=== PATIENT | female | born 1985 | race African-American/Black ===

== ENCOUNTER 2016-09-23 17:29 | Emergency (ER) | payer SELFPAY ==
--- NOTE | 2016-09-23 19:03 | ER Document Report ---
ED Medical Screen (RME) - General Chief Complaint: Diarrhea Stated Complaint: DIARRHEA Time Seen by Provider: 09/23/16 18:57 Mode of Arrival: Ambulatory Information source: Patient Notes: This is a 31-year-old female that presents with diarrhea. The patient works on a cruciate and states she ate at a seafood buffet 2 weeks ago when she fell not quite right after eating at the seafood buffet. She states that she shortly after started having diarrhea and it was pretty bad at first. She states that over the last 2 weeks she still had diarrhea but is gotten better. She denies any fever or chills. She denies any abdominal pain. She did state that she had some blood on the toilet paper. She denies any blood mixed in with the stool. There is no family history of Crohn's disease or ulcerative colitis. TRAVEL OUTSIDE OF THE [place] IN LAST 30 DAYS: No - HPI Onset: Other - Last 2 weeks Quality of pain: No pain Severity: None Pain Level: Denies Associated Symptoms: Diarrhea. denies: Nausea, Vomiting Exacerbated by: Denies Relieved by: Denies Similar symptoms previously: No Recently seen / treated by doctor: No - Related Data Smoking: Non-smoker Frequency of alcohol use: None Drug Abuse: None Allergies/Adverse Reactions: No Known Allergies Allergy (Verified 09/23/16 18:39) Past Medical History - General Information source: Patient - Past Medical History Cardiac Medical History: Reports: None Pulmonary Medical History: Reports: None EENT Medical History: Reports: None Neurological Medical History: Reports: None Endocrine Medical History: Reports: None Renal/ Medical History: Reports: None Malignancy Medical History: Reports: None GI Medical History: Reports: None Musculoskeltal Medical History: Reports None Skin Medical History: Reports None Psychiatric Medical History: Reports: None Traumatic Medical History: Reports: None Infectious Medical History: Reports: None Past Surgical History: Reports: Hx Orthopedic Surgery - right rotator cuff - Immunizations Hx Diphtheria, Pertussis, Tetanus Vaccination: No Review of Systems - Review of Systems Constitutional: denies: Chills, Fever EENT: No symptoms reported Cardiovascular: No symptoms reported Respiratory: No symptoms reported Gastrointestinal: See HPI Genitourinary: No symptoms reported Female Genitourinary: No symptoms reported Musculoskeletal: No symptoms reported Skin: No symptoms reported Hematologic/Lymphatic: No symptoms reported Neurological/Psychological: No symptoms reported Physical Exam - Vital signs Vitals: Temp Pulse Resp BP Pulse Ox 99.1 F 63 16 105/63 97 09/23/16 17:36 09/23/16 17:36 09/23/16 17:36 09/23/16 17:36 09/23/16 17:36 Notes: Physical exam: GENERAL: 31-year-old female, alert and oriented 3, no acute distress HEAD: Atraumatic, normocephalic. EYES: Pupils equal round and reactive to light, extraocular movements intact, sclera anicteric, conjunctiva are normal. ENT: Moist mucous membranes. NECK: Normal range of motion LUNGS: Breath sounds clear to auscultation bilaterally and equal. No wheezes rales or rhonchi. HEART: Regular rate and rhythm without murmurs, rubs or gallops. ABDOMEN: Soft, normoactive bowel sounds. No tenderness to palpation. No guarding, no rebound. No masses appreciated. EXTREMITIES: Normal range of motion, no pitting or edema. No clubbing or cyanosis. NEUROLOGICAL: Cranial nerves II through XII grossly intact. Normal speech, normal gait. PSYCH: Normal mood, normal affect. SKIN: Warm, Dry, normal turgor, no rashes or lesions noted. Course - Vital Signs Vital signs: Temp Pulse Resp BP Pulse Ox 99.1 F 63 16 105/63 97 09/23/16 17:36 09/23/16 17:36 09/23/16 17:36 09/23/16 17:36 09/23/16 17:36 Doctor's Discharge - Discharge Clinical Impression: diarrhea Condition: Stable Disposition: HOME, SELF-CARE Instructions: Diarrhea, Nonspecific ([facility]) Additional Instructions: Recommendations: I do recommend you start taking probiotics to improve colon health as well as to the immune system. Try Activia Ukrainian Yogurt sold next to the milk at [employer] or supermarkets. Additionally, probiotics are sold in pill form and health food restaurants and these are good to. Drink plenty of fluids As we discussed, often times diarrhea from a food borne illness (i.e. food poisoning) will get better over time. In general, these are self limiting. However, if the diarrhea gets worse, the bleeding gets worse or if he started having pain, we would recommend coming back to the emergency room for blood work and repeat evaluation.
[2016-09-23 19:10] VITALS: BP 104/79
== END 2016-09-23 19:10 | disposition home or self-care (01) ==
LOC: ER 17:29
DX: R19.7 Diarrhea, unspecified (principal)
CPT/HCPCS: 99283

== ENCOUNTER 2017-10-16 10:38 | Emergency (ER) | payer OTHER ==
[2017-10-16] MEDS ORDERED: LIDOCAINE 5% (700 MG) TRANSDERMAL ADH..PATCH TP ONE (10:57)
[2017-10-16] MEDS ORDERED: IBUPROFEN 800 MG TABLET PO ONE (10:57)
[2017-10-16 11:22] VITALS: BP 104/67
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
== END 2017-10-16 12:26 | disposition home or self-care (01) ==
LOC: ER 10:38
DX: S46.811A Strain of other muscles, fascia and tendons at shoulder and upper arm level, right arm, initial encounter (principal); S39.012A Strain of muscle, fascia and tendon of lower back, initial encounter; M54.2 Cervicalgia; M54.6 Pain in thoracic spine; V87.7XXA Person injured in collision between other specified motor vehicles (traffic), initial encounter
CPT/HCPCS: 72110; 99284

== ENCOUNTER 2018-07-16 12:57 | Emergency (ER) | payer OTHER ==
[2018-07-16 13:08] VITALS: BP 118/76
[2018-07-16] MEDS ORDERED: POLYMYXIN B SULFATE/TMP OPH SOLN 10 ML OS ONE (14:01)
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
== END 2018-07-16 14:36 | disposition home or self-care (01) ==
LOC: ER 12:57
DX: S05.02XA Injury of conjunctiva and corneal abrasion without foreign body, left eye, initial encounter (principal); H57.12 Ocular pain, left eye; X58.XXXA Exposure to other specified factors, initial encounter
CPT/HCPCS: 99282; J3490

== ENCOUNTER 2019-12-07 08:54 | Inpatient (IN) | payer BC, MEDICAID ==
[2019-12-07] MEDS ORDERED: RINGERS SOLUTION,LACTATED 1,000 ML IV PRN (09:24)
[2019-12-07 09:47] LABS: ABSOLUTE EOSINOPHILS # (AUTO) 0.1 10^3/uL (0.0-0.6); ABSOLUTE LYMPHOCYTES (AUTO) 0.9 10^3/uL (0.5-4.7); ABSOLUTE MONOCYTES (AUTO) 0.4 10^3/uL (0.1-1.4); BASOPHILS % (AUTO) 0.5 % (0-2); EOSINOPHILS % (AUTO) 1.5 % (0-6); HEMATOCRIT 34.4 % (36.0-47.0); HEMOGLOBIN 11.8 g/dL (12.0-15.5); LYMPHOCYTES % (AUTO) 17.1 % (13-45); MEAN CORPUSCULAR HGB CONC 34.3 g/dL (32.0-36.0); MEAN CORPUSCULAR VOLUME 91 fl (80-97); MONOCYTES % (AUTO) 7.4 % (3-13); PLATELET COUNT 180 10^3/uL (150-450); RED CELL DISTRIBUTION WIDTH 14.2 % (11.5-14.0); SEGMENTED NEUTROPHILS % (AUTO) 73.5 % (42-78); TOTAL CELLS COUNTED % (AUTO) 100 %; WHITE BLOOD COUNT 5.4 10^3/uL (4.0-10.5)
[2019-12-07] MEDS ORDERED: OXYTOCIN/0.9 % SODIUM CHLORIDE 30 UNIT/500 ML RTUINJ IV PRN ×2 (09:53→17:59)
[2019-12-07] MEDS ORDERED: MISOPROSTOL 0.2 MG TABLET ONE (09:53)
[2019-12-07] MEDS ORDERED: LIDOCAINE 1% INJ-PF (10 MG/ML) 30 ML SDV ONE (09:53)
[2019-12-07] MEDS ORDERED: OXYTOCIN/0.9 % SODIUM CHLORIDE 30 UNIT/500 ML RTUINJ ONE (09:53)
[2019-12-07] MEDS ORDERED: OXYTOCIN 10 UNIT/ML VIAL ONE (09:53)
--- NOTE | 2019-12-07 10:06 | Admission Physical ---
Datetime Report Generated by CPN: 12/07/2019 10:05 CURRENT ADMISSION Hx Assessment: The History has been Reviewed and is Current Chief Complaint: Scheduled Induction of Labor Indication for Induction: Postterm Admit Impression : Postterm, Intrauterine Admit Plan: Admit to Unit; Initiate Labor Induction Protocol ALLERGIES Medication Allergies: No Medication Allergies: No Known Allergies (12/07/2019) Latex: No Latex Allergies OBSTETRICAL HISTORY EDC: 11/27/2019 00:00 : 2 Para: 0 Term: 0 : 0 SAB: 0 IAB: 1 Ectopic: 0 Livin Cesareans: 0 VBACs: 0 Multiple Births: 0 Gestational Diabetes: No Rh Sensitization: No Incompetent Cervix: No HILARY: No Infertility: No ART Treatment: No Uterine Anomaly: No IUGR: No Hx Previous C/S: No Macrosomia: No Hx Loss/Stillborn: No PIH: No Hx : No Placenta Previa/Abruption: No Depression/PP Depression: Yes PTL/PROM: No Post Hemorrhage: No Current Procedures: Ultrasound; NST MEDICAL HISTORY Diabetes: No Blood Transfusion: No Pulmonary Disease (Asthma, TB): No Breast Disease: No Hypertension: No Barman Surgery: No Heart Disease: No Hosp/Surgery: Yes Autoimmune Disorder: No Anesthetic Complications: No Kidney Disease: No Abnormal Pap Smear: No Neuro/Epilepsy: No Psychiatric Disorders: No Other Medical Diseases: No Hepatitis/Liver Disease: No Significant Family History: No Varicosities/Phlebitis: No Trauma/Violence : No Thyroid Dysfunction: No Medical History Comments: rotator cuff surgery-2011 INFECTIOUS HISTORY Gonorrhea: No Genital Herpes: No Chlamydia: No Tuberculosis: No Syphilis: No Hepatitis: No HIV/AIDS Exposure: No Rash or Viral Illness: No HPV: No PHYSICAL EXAM General: Normal Heart: Normal Lungs: Normal Abdomen: Normal Genitourinary Exam: Normal Extremities: Normal Pelvic Type: Adequate Physical Exam Comments: No s/s of current HSV outbreak on speculum exam. Vital Signs: Reviewed; Within Normal Limits VAGINAL EXAM Dilatation: 3 Effacement: 60 Station: -2 Contraction Comments: none MEMBRANES Membranes: Intact FETUS A EGA: 41.3 Monitoring: External US Decelerations: None FHR Category: Category I Presentation: Vertex Admit Comment: 34yo @ 41w3d into clinic for IOL. Pt is O pos, RI, GBS neg. 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 Denies h/s ideation at this time. Hx of EAB in 2010. Plan is to start pitocin at this time. INFORMED CONSENT Assignment: Opal Orellana MD Signature: with User ID: Sylvia : with User ID: [email or web address]
[2019-12-07] MEDS ORDERED: EPHEDRINE SULFATE INJ 50 MG/1 ML AMPULE ONE (13:10)
[2019-12-07] MEDS ORDERED: ROPIVACAINE HCL 0.2% INJ/PF (2 MG/ML) 20 ML SDV ONE (13:10)
[2019-12-07] MEDS ORDERED: FENTANYL/BUPIVACAINE/NS/PF 300 MCG/150 ML RTUINJ EPI ONE (13:10)
--- NOTE | 2019-12-07 13:39 | L&D Progress Notes ---
PROGRESS NOTES Datetime Report Generated by CPN: 12/07/2019 13:39 PROGRESS NOTE Impression Other: IUP @ 41w3d- IOL Procedures: Artificial ROM; Sterile Vag Exam Plan: Continue Present Management; Induction Informed Consent Obtained: Vaginal Delivery; Induction of Labor; Risks, Benefits and Alternatives Discussed Vital Signs : Reviewed; Within Normal Limits Comment: S: breathing with contractions desires epidural at this time, agreeable to AROM O:VSS, Cat I tracing, pit @ 12mu/min, contractions and cervix as stated A: IUP @ 41w3d IOL -progressing well AROM- very scant fluid/mixed with discharge unable to tell color, will continue to monitor P: continue IOL, bolus for epidural started,anticipate delivery VAGINAL EXAM Dilatation: 3 Effacement: 60 Station: -2 Contractions: 1.5-2 LAST VAGINAL EXAM-NURSING Nursing Exam Dilitation: 4-5 Nursing Exam Effacement: 60 Nursing Exam Station: -1 MEMBRANES Membranes: Ruptured FETUS A Monitoring: External US FHR Category: Category I Presentation: Vertex SIGNATURE SIGNATURE: [id number] Assignment: Opal Orellana MD Signature: with User ID: Sylvia : with User ID: Sylvia
[2019-12-07 14:06] LABS: APPEARANCE,URINE CLEAR; BILIRUBIN,URINE NEGATIVE (NEGATIVE); COLOR,URINE YELLOW; GLUCOSE, URINE NEGATIVE (NEGATIVE); KETONES,URINE NEGATIVE (NEGATIVE); LEUKOCYTE ESTERASE,URINE NEGATIVE (NEGATIVE); NITRITE,URINE NEGATIVE (NEGATIVE); PROTEIN,URINE 30 mg/dL (NEGATIVE); URINE SPECIFIC GRAVITY 1.018; UROBILINOGEN,URINE NEGATIVE mg/dL (<2.0)
[2019-12-07 14:31] LABS: URINE AMPHETAMINES SCREEN NEGATIVE; URINE BARBITURATES SCREEN NEGATIVE; URINE BENZODIAZEPINES SCREEN NEGATIVE; URINE COCAINE SCREEN NEGATIVE; URINE METHADONE SCREEN NEGATIVE; URINE PHENCYCLIDINE SCREEN NEGATIVE
[2019-12-07 14:36] LABS: URINE MARIJUANA (THC) SCREEN UNCONFIRMED POSITIVE
[2019-12-07] MEDS ORDERED: PROMETHAZINE HCL 25 MG TABLET PO PRN (17:59)
[2019-12-07] MEDS ORDERED: BENZOCAINE/MENTHOL AEROSOL SPRAY 56 ML TOP PRN (17:59)
[2019-12-07] MEDS ORDERED: MAGNESIUM HYDROXIDE SUSP 30 ML UDCUP PO PRN (17:59)
[2019-12-07] MEDS ORDERED: PROMETHAZINE HCL INJ 25 MG/1 ML VIAL IV PRN (17:59)
[2019-12-07] MEDS ORDERED: GLYCERIN/WITCH HAZEL LEAF 1 EACH MED..WIPE TP PRN (17:59)
[2019-12-07] MEDS ORDERED: DIPH/PERTUSS(ACELL)/TETANUS VAC/PF 0.5 ML SYR (>=10YO) IM PRN (17:59)
[2019-12-07] MEDS ORDERED: DIPHENHYDRAMINE HCL 25 MG CAPSULE PO PRN (17:59)
[2019-12-07] MEDS ORDERED: NA PHOS,M-B/NA PHOS,DI-BA (ADULT) 133 ML ENEMA PR PRN (17:59)
[2019-12-07] MEDS ORDERED: MEASLES,MUMPS&RUBELLA VACC/PF 0.5 ML VIAL SUBCUT PRN (17:59)
[2019-12-07] MEDS ORDERED: DIBUCAINE 1% OINTMENT 28 GM TP PRN (17:59)
[2019-12-07] MEDS ORDERED: PSEUDOEPHEDRINE HCL 30 MG TABLET PO PRN (17:59)
[2019-12-07] MEDS ORDERED: PROMETHAZINE HCL 25 MG SUPP.RECT PR PRN (17:59)
--- NOTE | 2019-12-07 19:04 | Delivery Summary ---
Del Sum A-C Datetime Report Generated by CPN: 12/07/2019 19:04 DELIVERY PERSONNEL DELIVERY PERSONNEL: [id number] Nurse Merchandise Presentation Manager Certified:: Karla Blanca CNM Labor and Delivery Nurse:: Evon Saba RNgrants officer Nurse:: YAA Rojas Nursery Nurse:: Jayne Rod RN Nursery Nurse:: CYNTHIA Arambula/DANYA: Su Whittington, RN [facility] Additional Personnel: : Letyt Limon RN MATERNAL INFORMATION Delivery Anesthesia: Epidural Medications After Delivery: Pitocin 30 Units in 500ml NS/D5W Meds After Delivery Comment: 200mLs open bolus, then remainder @ 95mLs/hr Delivery QBL: 100 Maternal Complications: None Provider Comments: pt progresed to c/c/1 began pushing, baby became bradycardic despite position changes, oxygen, stopping pitocin and rest between contractions. Dr. Orellana called back in room for possible kiwi extraction but patient began pushing even harder and quickly delivered a viable baby girl in LILIA presentation. Baby with vigorous respiratory effort and weak cry with tactile stimulation and placed on maternal abdomen for nursery nurse assesment. Cord allowed to stop pulsating then clamped x2 and cut by FOB (3vc noted, cord blood obtained). Baby to warmer for further assesment by NICU nurse. Placenta delivered spontaneously intact. Fundus firm @ U and bleeding stable. Vaginal and perineal inspection revealed no lacerations. Bleeding stable, baby able to stay in room with mother and both stable at this time. Dr. Orellana in room for delivery LABOR SUMMARY EDC: 11/27/2019 00:00 No. Babies in Womb: 1 Attempted: No Labor Anesthesia: None LABOR INFORMATION Reason for Induction: Post Dates Onset of Labor: 12/07/2019 13:06 Complete Dilatation: 12/07/2019 17:07 Oxytocin: Induction Group B Beta Strep: neg Antibiotics # of Doses: 0 Antibiotics Time of Last Dose: n/a Name of Antibiotic Given: n/a Steroids Given: None Reason Steroids Not Administered: Not Applicable MEMBRANES Membranes Rupture Method: Artificial Rupture of Membranes: 12/07/2019 13:06 Length of Rupture (hr): 4.55 Amniotic Fluid Color: Clear Amniotic Fluid Amount: None Amniotic Fluid Odor: None STAGES OF LABOR Stage 1 hr: 4 Stage 1 min: 1 Stage 2 hr: 0 Stage 2 min: 32 Stage 3 hr: 0 Stage 3 min: 6 Total Time in Labor hr: 4 Total Time in Labor min: 39 VAGINAL DELIVERY Episiotomy: None Laceration #1: None Other Laceration: n/a Laceration Repair: Not Applicable Sponge Count Correct: N/A Sharps Count Correct: N/A CSECTION DELIVERY Primary Indication: N/A Secondary Indication: N/A CSection Incidence: N/A Labor: N/A Elective: N/A CSection Incision: N/A BABY A INFORMATION Infant Delivery Date/Time: 12/07/2019 17:39 Method of Delivery: Vaginal Born in Route : No : N/A Forceps: N/A Vacuum Extraction: N/A Shoulder Dystocia : No PRESENTATION/POSITION BABY A Presentation: Cephalic Cephalic Presentation: Vertex Vertex Position: Left Occipital Anterior Breech Presentation: N/A PLACENTA INFORMATION BABY A Placenta Delivery Time : 12/07/2019 17:45 Placenta Method of Delivery: Spontaneous Placenta Status: Delivered SCORES BABY A Heart Rate 1 min: >100 bpm Resp Effort 1 min: Good Cry Reflex Irritability 1 min: Cough or Sneeze or Pulls Away Muscle Tone 1 min: Active Motion Color 1 min: Blue/Pale Resuscitation Effort 1 min: Tactile Stimulation SCORE 1 MIN: 8 Heart Rate 5 min: >100 bpm Resp Effort 5 min: Good Cry Reflex Irritability 5 min: Cough or Sneeze or Pulls Away Muscle Tone 5 min: Active Motion Color 5 min: Blue/Pale Resuscitation Effort 5 min: Tactile Stimulation; Oxygen; PPV/NCPAP SCORE 5 MIN: 8 INFORMATION BABY A Gestational Age at Delivery: 41.3 Gestational Status: Late Term- 41- 41.6 Weeks Infant Outcome : Liveborn Infant Condition : Stable Infant Sex: Female IDENTIFICATION BABY A Infant Verification Date/Time: 12/07/2019 18:25 ID Band Number: [id number] Mother's Name Verified: Yes RN Verifying Infant: MMobley, RN KCrimm, RN WEIGHT/LENGTH BABY A Infant Birthweight (gm): 3194 Weight (lb): 7 Weight (oz): 1 Infant Length (in): 20.50 Infant Length (cm): 52.07 CORD INFORMATION BABY A No. Cord Vessels: 3 Nuchal Cord : N/A Cord Blood Taken: Yes-For Eval (Mom's Blood Type - or O+) Infant Suction: Mouth; Nose ASSESSMENT BABY A Infant Complications: Extended Bradycardia Physical Findings at Delivery: Within Normal Limits; Other Physical Findings- Other: cyanosis Respirations: Intercostal Retractions Skin to Skin: Yes Skin to Skin Time (min): 45 Organ Tuner/ALS Called : No Care By: CYNTHIA Mendes Transferred To: Remains with Mother BABY B INFORMATION : N/A SIGNATURES Assignment: Opal Orellana MD Signature: with User ID: Sylvia : with User ID: Sylvia
--- NOTE | 2019-12-07 19:20 | Warning Signs in Babies ---
VOD Warning Signs Datetime Report Generated by [facility]: 12/07/2019 19:20 VOD#608 -Warning Signs in Babies: Viewed with Parent(s)/Family (12/07/2019 19:15:Angel Roberts RN)
[2019-12-07] MEDS: ACETAMINOPHEN 325 MG TABLET PO PRN (22:07)
[2019-12-07] MEDS: FAMOTIDINE 20 MG TABLET PO SCH (22:09)
[2019-12-08] MEDS: IBUPROFEN 800 MG TABLET PO SCH ×4 (02:23→17:15)
[2019-12-08] MEDS: ACETAMINOPHEN 325 MG TABLET PO PRN ×2 (03:17→21:39)
[2019-12-08 06:54] LABS: HEMATOCRIT 32.4 % (36.0-47.0); HEMOGLOBIN 11.1 g/dL (12.0-15.5); MEAN CORPUSCULAR HEMOGLOBIN 30.5 pg (27.0-33.4); MEAN CORPUSCULAR HGB CONC 34.3 g/dL (32.0-36.0); MEAN CORPUSCULAR VOLUME 89 fl (80-97); PLATELET COUNT 156 10^3/uL (150-450); RED BLOOD COUNT 3.65 10^6/uL (3.72-5.28); RED CELL DISTRIBUTION WIDTH 14.5 % (11.5-14.0); WHITE BLOOD COUNT 8.6 10^3/uL (4.0-10.5)
[2019-12-08] MEDS: DOCUSATE SODIUM 100 MG CAPSULE PO SCH ×2 (09:23→17:15)
[2019-12-08] MEDS: PRENATAL VITAMIN W DHA CAPSULE PO SCH (09:23)
[2019-12-08] MEDS: FAMOTIDINE 20 MG TABLET PO SCH ×2 (09:23→21:35)
[2019-12-08] MEDS: SENNOSIDES/DOCUSATE 8.6-50 MG 1 EACH TABLET PO SCH (09:23)
[2019-12-08] MEDS: FERROUS SULFATE 325 MG TABLET PO SCH ×2 (09:24→17:15)
--- NOTE | 2019-12-08 10:18 | PDOC PROGRESS REPORT ---
Subjective-OB Progress Note for:: 12/08/19 Subjective: Dooing well, no c/o, , voiding Physical Exam (OB) Vital Signs: Temp Pulse Resp BP Pulse Ox 97.6 F 65 16 109/64 99 12/08/19 07:15 12/08/19 07:15 12/08/19 07:15 12/08/19 07:15 12/08/19 07:15 Intake & Output 12/07/19 12/08/19 12/09/19 06:59 06:59 06:59 Weight 108.5 kg - PIH/Pre-Eclampsia DTR's: 2 + Clonus: Negative Headache: Present Epigastric Pain: No Visual Changes: No - Lochia Lochia Amount: Small 10-25 ml Lochia Color: Rubra/Red - Abdomen Description: Soft, Round Hernia Present: No Fundal Description: Firm, Midline Fundal Height: u/u - u/2 Objective-Diagnostic Laboratory: 12/08/19 06:14 12/07/19 12/07/19 12/08/19 09:15 09:29 06:14 WBC 8.6 RBC 3.65 L Hgb 11.1 L Hct 32.4 L MCV 89 MCH 30.5 MCHC 34.3 RDW 14.5 H Plt Count 156 Urine Color YELLOW Urine Appearance CLEAR Urine pH 7.0 Ur Specific [place] 1.018 Urine Protein 30 H Urine Glucose (UA) NEGATIVE Urine Ketones NEGATIVE Urine Blood NEGATIVE Urine Nitrite NEGATIVE Ur Leukocyte Esterase NEGATIVE Blood Type O POSITIVE Antibody Screen NEGATIVE Assessment and Plan(PN) - Assessment and Plan (1) Encounter for induction of labor Is this a current diagnosis for this admission?: Yes (2) Vaginal delivery Is this a current diagnosis for this admission?: Yes - Time Spent with Patient Time with patient: Less than 15 minutes Smoking Education Provided: Over 3 minutes Medications reviewed and adjusted accordingly: Yes - Disposition Anticipated Discharge: Home Within: within 24 hours
[2019-12-09] MEDS: IBUPROFEN 800 MG TABLET PO SCH ×2 (02:14→09:09)
[2019-12-09] MEDS: PRENATAL VITAMIN W DHA CAPSULE PO SCH (09:09)
[2019-12-09] MEDS: FAMOTIDINE 20 MG TABLET PO SCH (09:09)
[2019-12-09] MEDS: FERROUS SULFATE 325 MG TABLET PO SCH (09:10)
[2019-12-09] MEDS: SENNOSIDES/DOCUSATE 8.6-50 MG 1 EACH TABLET PO SCH (09:10)
[2019-12-09] MEDS: DOCUSATE SODIUM 100 MG CAPSULE PO SCH (09:10)
--- NOTE | 2019-12-09 09:57 | PDOC DISCHARGE SUMMARY ---
Impression - Admit/DC Date/PCP Admission Date/Primary Care Provider: 12/07/19 08:54 Discharge Date: 12/09/19 - PP Day #2, doing well, no complaints, , O+, Rubella immune - Discharge Diagnosis (1) Encounter for induction of labor Is this a current diagnosis for this admission?: Yes (2) Vaginal delivery Is this a current diagnosis for this admission?: Yes - Additional Information Resuscitation Status: Full Code Discharge Diet: As Tolerated, Regular Discharge Activity: Activity As Tolerated Prescriptions: Ibuprofen [Motrin 800 mg Tablet] 800 mg PO Q8A #60 tablet Home Medications: Pnv No.95/Ferrous Fum/Folic AC [ Caplet] 1 cap PO DAILY 12/07/19 Sertraline HCl [Zoloft 50 mg Tablet] 1 tab PO DAILY 12/07/19 Ibuprofen [Motrin 800 mg Tablet] 800 mg PO Q8A #60 tablet 12/09/19 HPI Reason(s) for Admission: Onset of Labor Procedures: Ultrasound Intrapartum Procedure(s): Spontaneous Vaginal Delivery Hospital Course Hospital Course: normal Results Laboratory Results: WBC 8.6 10^3/uL (4.0-10.5) 12/08/19 06:14 RBC 3.65 10^6/uL (3.72-5.28) L 12/08/19 06:14 Hgb 11.1 g/dL (12.0-15.5) L 12/08/19 06:14 Hct 32.4 % (36.0-47.0) L 12/08/19 06:14 MCV 89 fl (80-97) 12/08/19 06:14 MCH 30.5 pg (27.0-33.4) 12/08/19 06:14 MCHC 34.3 g/dL (32.0-36.0) 12/08/19 06:14 RDW 14.5 % (11.5-14.0) H 12/08/19 06:14 Plt Count 156 10^3/uL (150-450) 12/08/19 06:14 Lymph % (Auto) 17.1 % (13-45) 12/07/19 09:29 Bartholomew % (Auto) 7.4 % (3-13) 12/07/19 09:29 Eos % (Auto) 1.5 % (0-6) 12/07/19 09:29 Baso % (Auto) 0.5 % (0-2) 12/07/19 09:29 Absolute Neuts (auto) 4.0 10^3/uL (1.7-8.2) 12/07/19 09:29 Absolute Lymphs (auto) 0.9 10^3/uL (0.5-4.7) 12/07/19 09:29 Absolute Monos (auto) 0.4 10^3/uL (0.1-1.4) 12/07/19 09:29 Absolute Eos (auto) 0.1 10^3/uL (0.0-0.6) 12/07/19 09:29 Absolute Basos (auto) 0.0 10^3/uL (0.0-0.2) 12/07/19 09:29 Seg Neutrophils % 73.5 % (42-78) 12/07/19 09:29 Urine Color YELLOW 12/07/19 09:15 Urine Appearance CLEAR 12/07/19 09:15 Urine pH 7.0 (5.0-9.0) 12/07/19 09:15 Ur Specific [place] 1.018 12/07/19 09:15 Urine Protein 30 mg/dL (NEGATIVE) H 12/07/19 09:15 Urine Glucose (UA) NEGATIVE mg/dL (NEGATIVE) 12/07/19 09:15 Urine Ketones NEGATIVE mg/dL (NEGATIVE) 12/07/19 09:15 Urine Blood NEGATIVE (NEGATIVE) 12/07/19 09:15 Urine Nitrite NEGATIVE (NEGATIVE) 12/07/19 09:15 Urine Bilirubin NEGATIVE (NEGATIVE) 12/07/19 09:15 Urine Urobilinogen NEGATIVE mg/dL (<2.0) 12/07/19 09:15 Ur Leukocyte Esterase NEGATIVE (NEGATIVE) 12/07/19 09:15 Urine Ascorbic Acid NEGATIVE (NEGATIVE) 12/07/19 09:15 Urine Opiates Screen NEGATIVE 12/07/19 09:15 Urine Methadone Screen NEGATIVE 12/07/19 09:15 Ur Barbiturates Screen NEGATIVE 12/07/19 09:15 Ur Phencyclidine Scrn NEGATIVE 12/07/19 09:15 Ur Amphetamines Screen NEGATIVE 12/07/19 09:15 U Benzodiazepines Scrn NEGATIVE 12/07/19 09:15 Urine Cocaine Screen NEGATIVE 12/07/19 09:15 U Marijuana (THC) Screen UNCONFIRMED POSITIVE 12/07/19 09:15 RPR NONREACTIVE (NONREACTIVE) 12/07/19 09:29 Blood Type O POSITIVE 12/07/19 09:29 Antibody Screen NEGATIVE 12/07/19 09:29 Plan Plan of Treatment: f/up with [facility] for PP check up in 4 wks Time Spent: Less than 30 Minutes
[2019-12-09 12:04] VITALS: BP 128/74
== END 2019-12-09 13:40 | disposition home or self-care (01) | DRG 806 ==
LOC: LR 08:54 → 2S 20:00
PROVIDERS: ADMIT Obstetrics & Gynecology; ATTEND Obstetrics & Gynecology
PROC: 10E0XZZ Delivery of Products of Conception, External Approach (ICD-10-PCS; principal; 2019-12-07)
PROC: 10907ZC Drainage of Amniotic Fluid, Therapeutic from Products of Conception, Via Natural or Artificial Opening (ICD-10-PCS; 2019-12-07)
PROC: 3E033VJ Introduction of Other Hormone into Peripheral Vein, Percutaneous Approach (ICD-10-PCS; 2019-12-07)
DX: O48.0 Post-term pregnancy (principal); O98.32 Other infections with a predominantly sexual mode of transmission complicating childbirth; Z37.0 Single live birth; A60.09 Herpesviral infection of other urogenital tract; O99.344 Other mental disorders complicating childbirth; F32.9 Major depressive disorder, single episode, unspecified; Z3A.41 41 weeks gestation of pregnancy
CPT/HCPCS: 1967; 36415; 80307; 80349; 81005; 85025; 85027; 86592; 86850; 86900; 86901; 94760; C1758; G0480; J2590; J2795; J3010; J3490